=== PATIENT | female | born 1975 | race Caucasian/White ===

== ENCOUNTER 2020-04-01 12:54 | Emergency (ER) | payer OTHER ==
[~2020-04-01] VITALS: Ht 167.6 cm; Wt 77.6 kg
[~2020-04-01 12:54] MED LIST: BENA10TA25 PO
[2020-04-01 13:02] VITALS: BP 158/95
--- NOTE | 2020-04-01 13:18 | NUR ---
C/O HEADACHE THAT BEGAN ON TUESDAY, INTERMITTENT, 10/10 SHARP PAIN ON LEFT SIDE OF HEAD. PATIENT STATES PAIN IS SO SEVERE SHE FEELS LIKE SHES GOING TO PASS OUT. ONE EPISODE OF HTN ON TUESDAY 180/91 WITH BLURRED VISION. VISION IS CLEAR NOW. NO NEURO DEFECITS NOTED.PT AOX 4, AFIBRILE , AMBULATORY WITH STEADY GAIT, SCE , FLAT SOFT ABDOMEN. PMH: HTN ALLERGIES: CIPRO
--- NOTE | 2020-04-01 13:29 | NUR ---
pt to ct scan via gurney with stable vs.
--- NOTE | 2020-04-01 13:45 | NUR ---
pt back fro ct scan.
--- NOTE | 2020-04-01 13:50 | NUR ---
dr godinez at bedside evaluating pt.
[2020-04-01] MEDS ORDERED: KETOROLAC 60 MG/2 ML VIAL IM ONE (14:05)
--- NOTE | 2020-04-01 14:44 | NUR ---
dr godinez at bedside reevaluating pt.
[2020-04-01] MEDS ORDERED: traMADol 50 MG TAB PO ONE ×2 (15:00→15:05)
[2020-04-01 15:22] VITALS: BP 158/95
--- NOTE | 2020-04-01 15:23 | NUR ---
Patient discharged with v/s stable. Written and verbal after care instructions given and explained regarding tension headache. Patient alert, oriented and verbalized understanding of instructions. Ambulatory with steady gait. All questions addressed prior to discharge. ID band removed. Patient advised to follow up with PMD. Rx of motrim and tramadol given. Patient educated on indication of medication including possible reaction and side effects. Opportunity to ask questions provided and answered.
== END 2020-04-01 15:23 | disposition home or self-care (01) ==
LOC: MED 12:54
DX: G44.209 Tension-type headache, unspecified, not intractable (principal); I10 Essential (primary) hypertension; R73.03 Prediabetes; Z88.1 Allergy status to other antibiotic agents; Z90.49 Acquired absence of other specified parts of digestive tract; Z79.899 Other long term (current) drug therapy
CPT/HCPCS: 70450; 96372; 99284; J1885; 99283

== ENCOUNTER 2023-05-26 00:05 | Emergency (ER) | payer OTHER ==
[~2023-05-26] VITALS: Ht 152.4 cm; Wt 80.7 kg
[2023-05-26 00:10] VITALS: BP 160/92; PULSE 95; RESP 16; TEMP 97.5; O2SAT 100
[2023-05-26] MEDS ORDERED: ENALAPRILAT 2.5 MG/2 ML VIAL IVP ONE (01:10)
[2023-05-26 01:27] LABS: BASOPHILS # (AUTO) 0.1 K/uL (0.00-0.22); BASOPHILS % (AUTO) 0.7 % (0.0-2.0); EOSINOPHILS # (AUTO) 0.3 K/uL (0-0.4); EOSINOPHILS % (AUTO) 3.1 % (0.0-4.0); HEMATOCRIT 39.1 % (36-48); HEMOGLOBIN 12.7 g/dL (12.0-16.0); LYMPHOCYTES # (AUTO) 1.9 K/uL (2.5-16.5); LYMPHOCYTES % (AUTO) 23.7 % (20.5-51.1); MEAN CORPUSCULAR HEMOGLOBIN 26 pg (27-31); MEAN CORPUSCULAR HGB CONC 32 g/dL (33-37); MEAN CORPUSCULAR VOLUME 81.2 fL (80-94); MONOCYTES # (AUTO) 0.4 K/uL (0.8-1.0); NEUTROPHILS # (AUTO) 5.5 K/uL (1.8-7.7); NEUTROPHILS % (AUTO) 67.5 % (42.2-75.2); PLATELET COUNT (AUTO) 244 K/uL (140-450); RED BLOOD CELL COUNT(AUTO) 4.82 MIL/uL (4.20-5.40); RED CELL DISTRIBUTION WIDTH 14.2 % (11.6-13.7); WHITE BLOOD COUNT (AUTO) 8.2 K/uL (4.8-10.8)
[2023-05-26 01:32] VITALS: RESP 15
[2023-05-26 01:33] VITALS: O2SAT 97
[2023-05-26 01:45] LABS: ANION GAP 9.1 (8-16); CALCIUM 9.3 mg/dL (8.5-10.1); CARBON DIOXIDE 30.8 mmol/L (21-32); CREATININE 0.7 mg/dL (0.6-1.3); POTASSIUM 3.9 mmol/L (3.5-5.1)
[2023-05-26] MEDS ORDERED: BENA10TA81 PO (02:31)
[2023-05-26 02:40] VITALS: BP 139/87; PULSE 71
== END 2023-05-26 02:35 | disposition home or self-care (01) ==
LOC: MED 00:05
DX: I10 Essential (primary) hypertension (principal); Z79.899 Other long term (current) drug therapy; Z88.5 Allergy status to narcotic agent; Z90.49 Acquired absence of other specified parts of digestive tract
CPT/HCPCS: 36415; 80048; 84484; 85025; 93005; 96374; 99284; J3490

== ENCOUNTER 2023-06-01 10:16 | Emergency (ER) | payer OTHER ==
[~2023-06-01] VITALS: Ht 162.6 cm; Wt 72.6 kg
[~2023-06-01 10:16] MED LIST changes: +BENA10TA81 PO
[2023-06-01 11:12] VITALS: BP 173/87; PULSE 96; RESP 20; TEMP 98; O2SAT 98
[2023-06-01 12:14] LABS: APPEARANCE,URINE CLEAR (CLEAR); BILIRUBIN,URINE NEGATIVE (NEGATIVE); BLOOD, URINE TRACE-I (NEGATIVE); COLOR,URINE YELLOW (YELLOW); LEUKOCYTE ESTERASE ,URINE NEGATIVE (NEGATIVE); NITRITE, URINE NEGATIVE (NEGATIVE); PROTEIN,URINE TRACE (NEGATIVE); UGLUCOSE NEGATIVE (NEGATIVE); UROBILINOGEN,URINE 0.2 EU/dL (0.2 - 1)
[2023-06-01] MEDS ORDERED: ALUMINUM HYD/MAG/SIMETHICONE 30 ML UDC PO ONE (13:35)
[2023-06-01] MEDS ORDERED: KETOROLAC 30 MG/ML VIAL IM ONE (13:35)
[2023-06-01] MEDS ORDERED: FAMOTIDINE 20 MG TAB PO ONE (13:35)
[2023-06-01 14:41] LABS: BASOPHILS # (AUTO) 0.1 K/uL (0.00-0.22); BASOPHILS % (AUTO) 0.7 % (0.0-2.0); EOSINOPHILS % (AUTO) 0.4 % (0.0-4.0); HEMATOCRIT 41.1 % (36-48); HEMOGLOBIN 13.3 g/dL (12.0-16.0); LYMPHOCYTES # (AUTO) 2.1 K/uL (2.5-16.5); LYMPHOCYTES % (AUTO) 24.1 % (20.5-51.1); MEAN CORPUSCULAR HEMOGLOBIN 26 pg (27-31); MEAN CORPUSCULAR HGB CONC 32 g/dL (33-37); MEAN CORPUSCULAR VOLUME 81.6 fL (80-94); MONOCYTES # (AUTO) 0.4 K/uL (0.8-1.0); MONOCYTES % (AUTO) 4.5 % (1.7-9.3); NEUTROPHILS # (AUTO) 6.2 K/uL (1.8-7.7); NEUTROPHILS % (AUTO) 70.3 % (42.2-75.2); PLATELET COUNT (AUTO) 255 K/uL (140-450); RED BLOOD CELL COUNT(AUTO) 5.04 MIL/uL (4.20-5.40); RED CELL DISTRIBUTION WIDTH 14.1 % (11.6-13.7); WHITE BLOOD COUNT (AUTO) 8.8 K/uL (4.8-10.8)
[2023-06-01 15:00] LABS: ANION GAP 14.2 (8-16); CALCIUM 8.8 mg/dL (8.5-10.1); CARBON DIOXIDE 26.9 mmol/L (21-32); CREATININE 0.7 mg/dL (0.6-1.3); POTASSIUM 4.1 mmol/L (3.5-5.1)
[2023-06-01 15:05] LABS: ALBUMIN 3.9 g/dL (3.4-5.0); BILIRUBIN,DIRECT 0.1 mg/dL (0.0-0.3); TOTAL BILIRUBIN 0.3 mg/dL (0.0-1.0); TOTAL PROTEIN, SERUM 8.5 g/dL (6.4-8.2)
[2023-06-01] MEDS ORDERED: IBUP-2213 PO (15:22)
[2023-06-01 15:47] VITALS: BP 169/75; PULSE 77; RESP 17; TEMP 98; O2SAT 99
== END 2023-06-01 15:45 | disposition home or self-care (01) ==
LOC: MED 10:16
DX: K80.50 Calculus of bile duct without cholangitis or cholecystitis without obstruction (principal); K80.20 Calculus of gallbladder without cholecystitis without obstruction; E11.9 Type 2 diabetes mellitus without complications; I10 Essential (primary) hypertension; Z90.49 Acquired absence of other specified parts of digestive tract; Z79.899 Other long term (current) drug therapy; Z79.1 Long term (current) use of non-steroidal anti-inflammatories (NSAID); Z88.1 Allergy status to other antibiotic agents
CPT/HCPCS: 36415; 76705; 80048; 80076; 81003; 81025; 83690; 85025; 96372; 99285; J1885; Q0092

== ENCOUNTER 2024-03-12 12:45 | Emergency (ER) | payer OTHER ==
[~2024-03-12] VITALS: Ht 152.4 cm; Wt 569.8 kg
[~2024-03-12 12:45] MED LIST changes: +IBUP-2213 PO
[2024-03-12 12:58] VITALS: BP 166/76; PULSE 91; RESP 18; TEMP 98.6; O2SAT 100
[2024-03-12 13:48] LABS: BASOPHILS % (AUTO) 0.7 % (0.0-2.0); EOSINOPHILS # (AUTO) 0.3 K/uL (0-0.4); EOSINOPHILS % (AUTO) 4.5 % (0.0-4.0); HEMATOCRIT 41.3 % (36-48); HEMOGLOBIN 13.6 g/dL (12.0-16.0); LYMPHOCYTES # (AUTO) 1.5 K/uL (2.5-16.5); LYMPHOCYTES % (AUTO) 22.9 % (20.5-51.1); MEAN CORPUSCULAR HEMOGLOBIN 27 pg (27-31); MEAN CORPUSCULAR HGB CONC 33 g/dL (33-37); MEAN CORPUSCULAR VOLUME 82.9 fL (80-94); MONOCYTES # (AUTO) 0.4 K/uL (0.8-1.0); MONOCYTES % (AUTO) 6.4 % (1.7-9.3); NEUTROPHILS # (AUTO) 4.4 K/uL (1.8-7.7); NEUTROPHILS % (AUTO) 65.5 % (42.2-75.2); PLATELET COUNT (AUTO) 249 K/uL (140-450); RED BLOOD CELL COUNT(AUTO) 4.98 MIL/uL (4.20-5.40); RED CELL DISTRIBUTION WIDTH 14.5 % (11.6-13.7); WHITE BLOOD COUNT (AUTO) 6.7 K/uL (4.8-10.8)
[2024-03-12 13:58] LABS: ANION GAP 9.9 (8-16); CALCIUM 8.9 mg/dL (8.5-10.1); CARBON DIOXIDE 29.8 mmol/L (21-32); CREATININE 0.5 mg/dL (0.6-1.3); POTASSIUM 3.7 mmol/L (3.5-5.1)
[2024-03-12 14:04] LABS: ALBUMIN 3.8 g/dL (3.4-5.0); BILIRUBIN,DIRECT 0.1 mg/dL (0.0-0.3); TOTAL BILIRUBIN 0.2 mg/dL (0.0-1.0); TOTAL PROTEIN, SERUM 8.1 g/dL (6.4-8.2)
[2024-03-12] MEDS: KETOROLAC 30 MG/ML VIAL IM ONE (14:12)
[2024-03-12 14:53] LABS: APPEARANCE,URINE CLEAR (CLEAR); BILIRUBIN,URINE NEGATIVE (NEGATIVE); BLOOD, URINE NEGATIVE (NEGATIVE); COLOR,URINE YELLOW (YELLOW); LEUKOCYTE ESTERASE ,URINE TRACE (NEGATIVE); NITRITE, URINE NEGATIVE (NEGATIVE); PROTEIN,URINE NEGATIVE (NEGATIVE); UGLUCOSE NEGATIVE (NEGATIVE); UROBILINOGEN,URINE 0.2 EU/dL (0.2 - 1)
[2024-03-12 15:10] LABS: BACTERIA,URINE FEW /HPF (None Seen); RBC,URINE 0-5 /HPF (0-5); SQUAMOUS EPITHELIAL CELL,UR 0-3 (FEW) /LPF (0-3 (FEW)); WBC,URINE 0-5 /HPF (0-5)
[2024-03-12] MEDS ORDERED: ACET-503 PO (16:11)
[2024-03-12] MEDS ORDERED: OMEP-278 PO (16:11)
[2024-03-12 16:40] VITALS: BP 115/73; PULSE 70; RESP 18; TEMP 37.00296; O2SAT 100
== END 2024-03-12 16:40 | disposition home or self-care (01) ==
LOC: MED 12:45
DX: R10.13 Epigastric pain (principal); R11.0 Nausea; I10 Essential (primary) hypertension; E11.9 Type 2 diabetes mellitus without complications; Z90.49 Acquired absence of other specified parts of digestive tract; Z79.899 Other long term (current) drug therapy; Z88.1 Allergy status to other antibiotic agents
CPT/HCPCS: 36415; 80048; 80076; 81001; 81025; 83690; 85025; 96372; 99283; J1885